=== PATIENT | female | born 1960 | race Caucasian/White ===

== ENCOUNTER 2016-10-11 03:25 | Emergency (ER) | payer OTHER ==
[~2016-10-11] VITALS: Ht 162.6 cm; Wt 80.0 kg
[~2016-10-11 03:25] MED LIST: NO KNOWN MEDICATIONS
--- OUTSIDE RECORDS SUMMARY | 2016-10-11 03:30 | XMS REPORT | Referral Summary ---
Author Author [facility] Organization [facility] Address Unknown Phone Unavailable Care Team Providers Care Wire Coiler Name Role Phone Chicho Lund Primary Care Physician [phone] Encounter VC Date(s): 05/16/16 - 05/16/16 [facility], Family [address] [place] [id number]- Discharge Diagnosis: Well woman exam (no gynecological exam) Discharge Disposition: 01-Home or Self Care Attending Physician: Chastity Lund DO Admitting Physician: Chastity Lund DO Vital Signs Most recent to 1 oldest [Reference Range]: Peripheral Pulse 71 bpm Rate [60-100 bpm] (05/16/16 8:34 AM) Blood Pressure 122/78 mmHg [90-140/60-90 mmHg] (05/16/16 8:34 AM) SpO2 98 % (05/16/16 8:34 AM) Problem List Condition Effective Dates Status Health Status Informant Arthritis(Confirmed) Active Hypertension(Confirm Active ed) L Knee Resolved arthritis(Confirmed) Overweight(Confirmed Active ) Tension Active headache(Confirmed) Allergies, Adverse Reactions, Alerts Substance Reaction Severity Status penicillin Active sulfanilamide topical Active tetracycline Active Medications No Known Medications Results No data available for this section Immunizations Vaccine Date Refusal Reason tetanus/diphtheria/pertussis, acel(Tdap) 07/02/10 Procedures Procedure Date Related Diagnosis Body Site Mammogram 04/21/16 Vaginal Pap smear 12/06/14 Cholecystectomy 04/2000 Breast reduction 02/1980 Knee Surgery 03/1978 Tonsillectomy 1971 Social History Social History Type Response Smoking Status Never smoker Assessment and Plan Extracted from: Title: WWE Author: Chastity Lund DO Date: 05/16/16 Assessment/Plan Well woman exam (no gynecological exam) Exam normal, colonoscopy paperwork provided and this was recommended today, we will keep an eye on her borderline high glucose through yearly work screenings, cholesterol was good, return to clinic in 1 year or sooner with problems. Ordered: Periodic Comp Preventive Med 40 to 64 years Est [id number]
--- OUTSIDE RECORDS SUMMARY | 2016-10-11 03:30 | XMS REPORT | Continuity of Care Document ---
Author Author [facility] Address Unknown Phone Unavailable Care Team Providers Care Cashier Supervisor Name Role Phone April Noriega TACHO Unavailable Payers Payer name Insurance type Covered libertarian ID Authorization(s) Unknown Problems Condition Effective Dates (start - stop) Clinical Status Sinusitis, Acute - *Acute Gynecological Examination - *Routine Hypertension, Unspecified - *Chronic Other and unspecified hyperlipidemia - *Chronic Shingles - *Acute OVERWEIGHT - TENSION HEADACHE - Hypertension, Benign - *Controlled Family History Family Member Diagnosis Age At Onset Status Unknown Social History Social History Element Description Quantity Unknown Allergies, Adverse Reactions, Alerts Substance Reaction Severity Status PENICILLINS Unknown TETRACYCLINE Unknown SULFANILAMIDE Unknown Medications Medication Instructions Dosage Effective Dates (start - stop) Status meloxicam 7.5 mg tablet take 2 tablet (15MG) by oral route every day as needed. - Active Cipro 500 mg tablet take 1 tablet (500MG) by oral route 2 times every day for 7 days 500 MG - No Longer Active Vitamin C 500 mg capsule,extended release take 1 Tablet by Oral route 2 times every day 0 - Active OMEGA-3 (unknown strength) take 1 Capsule by Oral route every day - Active VITAMIN D3 (unknown strength) - Active lisinopril 20 mg tablet Take 1 tablet by mouth every day. - Active Immunizations Vaccine Date Status Comments Tdap (Boostrix ) completed - Completed reason: source unspecified Results Test Name Date and Time Measure Units Reference Range Abnormal Flag Comments Unknown Vital Signs Date / Time: Height Weight Pulse Rate Blood Pressure Temperature /10:49:00 64.00 in 187.40 lbs 76 /min 116/84 mm[Hg] 98.4 F Procedures Procedure Date Unknown Encounters Encounter Location Date Patient Visit [facility] Patient Visit [facility] Patient Visit [facility] Patient Visit [facility] Patient Visit [facility] Patient Visit [facility] Patient Visit [facility] Advance Directives Directive Effective Date Unknown
--- OUTSIDE RECORDS SUMMARY | 2016-10-11 03:30 | XMS REPORT | Referral Summary ---
Author Author [facility] Organization [facility] Address Unknown Phone Unavailable Care Team Providers Care Seed Cleaning Manager Name Role Phone Kathia Noriega Primary Care Physician [phone] Encounter VC Date(s): 12/06/14 - 12/06/14 [facility] [address] [place] [address] Discharge Diagnosis: Well female exam with routine gynecological exam Discharge Diagnosis: HTN (hypertension) Discharge Diagnosis: Visit for screening mammogram Discharge Disposition: 01-Home or Self Care Attending Physician: Sowmya Young APRN Admitting Physician: Sowmya Young APRN Vital Signs Most recent to 1 oldest [Reference Range]: Peripheral Pulse 72 bpm Rate [60-100 bpm] (12/06/14 8:42 AM) Blood Pressure 118/84 mmHg [90-140/60-90 mmHg] (12/06/14 8:42 AM) SpO2 98 % (12/06/14 8:42 AM) Problem List Condition Effective Dates Status Health Status Informant Arthritis(Confirmed) Active Hypertension(Confirm Active ed) L Knee Resolved arthritis(Confirmed) Overweight(Confirmed Active ) Tension Active headache(Confirmed) Allergies, Adverse Reactions, Alerts Substance Reaction Severity Status penicillin Active sulfanilamide topical Active tetracycline Active Medications Fish Oil 1 caps, Oral, Daily, 0 Refill(s) Start Date: 04/10/14 Status: Ordered meloxicam 7.5 mg oral tablet 2 tabs, Oral, Daily, as needed, # 90, 0 Refill(s) Start Date: 04/10/14 Status: Ordered Vitamin C 500 mg oral tablet 1 tabs, Oral, BID, extended release, 0 Refill(s) Start Date: 04/10/14 Status: Ordered Vitamin D3 0 Refill(s) Start Date: 04/10/14 Status: Ordered Results No data available for this section Immunizations Vaccine Date Refusal Reason tetanus/diphtheria/pertussis, acel(Tdap) 07/02/10 Procedures Procedure Date Related Diagnosis Body Site Cholecystectomy 04/2000 Breast reduction 02/1980 Knee Surgery 03/1978 Tonsillectomy 1971 Social History Social History Type Response Smoking Status Never smoker Assessment and Plan Extracted from: Title: Ambulatory Patient Education Author: Sowmya Young [employer]OWER Date : 12/06/14 Family Medicine Hypertension Hypertension is another name for high blood pressure. High blood pressure may mean that your heart needs to work harder to pump blood. Blood pressure consists of two numbers, which includes a higher number over a lower number ( example: 110/72). HOME CARE Make lifestyle changes as told by your doctor. This may include weight loss and exercise. Take your blood pressure medicine every day. Limit how much salt you use. Stop smoking if you smoke. Do not use drugs. Talk to your doctor if you are using decongestants or control pills. These medicines might make blood pressure higher. Females should not drink more than 1 alcoholic drink per day. Males should not drink more than 2 alcoholic drinks per day. See your doctor as told. GET HELP RIGHT AWAY IF: You have a blood pressure reading with a top number of 180 or higher. You get a very bad headache. You get blurred or changing vision. You feel confused. You feel weak, numb, or faint. You get chest or belly (abdominal ) pain. You throw up (vomit ). You cannot breathe very well. MAKE SURE YOU: Understand these instructions. Will watch your condition. Will get help right away if you are not doing well or get worse. Document Released: 2008 Document Revised: 09/20/2012 Document Reviewed: Exit[employer] Patient Information 2014 [place]. No follow up information was provided. Extracted from: Title: Office Visit Note Author: Sowmya Young [employer] Date: 12/06/14 Assessment/Plan HTN (hypertension) cont with healthful diet choices and exercise. Ordered: CBC w/ Differential Comprehensive Metabolic Panel Visit for screening mammogram reviewed recent mammo-normal. Well female exam with routine gynecological exam pap today. Ordered: HPV High Risk, Thin Prep
--- OUTSIDE RECORDS SUMMARY | 2016-10-11 03:30 | XMS REPORT | Continuity of Care Document ---
Author Author [facility] Organization [facility] Address Unknown Phone Unavailable Allergies Medications Problems Procedures Results Encounters ACCT No. Visit Date/Time Discharge Status Pt. Type Provider Facility Loc./Unit Complaint [id number] 09/27/2013 10:41:00 09/27/2013 23 :59:59 C[facility] Outpatient
[2016-10-11 03:40] VITALS: Ht 162.6 cm; Wt 80.0 kg
--- OUTSIDE RECORDS SUMMARY | 2016-10-11 04:10 | XMS REPORT | Continuity of Care Document ---
Author Author [facility] Organization [facility] Address Unknown Phone Unavailable Allergies Medications Problems Procedures Results Encounters ACCT No. Visit Date/Time Discharge Status Pt. Type Provider Facility Loc./Unit Complaint [id number] 09/27/2013 10:41:00 09/27/2013 23 :59:59 CLS Outpatient
[2016-10-11] MEDS ORDERED: ASCO10007 PO (04:19)
[2016-10-11] MEDS ORDERED: VITA-357 PO (04:19)
[2016-10-11] MEDS ORDERED: CHOL200024 PO (04:19)
[2016-10-11] MEDS ORDERED: MAGN400C PO (04:19)
[2016-10-11] MEDS ORDERED: G.I. COCKTAIL 30ml PO ONE (04:30)
[2016-10-11] MEDS ORDERED: RANITIDINE 150 MG TABLET PO ONE (04:30)
--- NOTE | 2016-10-11 04:46 | NUR ---
PROVIDER DR HOLLIDAY IN ROOM.
--- NOTE | 2016-10-11 04:49 | ERPDOC ---
Departure Disposition Decision Date: Oct 11, 2016 Disposition Decision Time: 04:46 Disposition: 01 DISCHARGED HOME, SELF-CARE Impression Impression Impression: Primary Impression: Esophageal reflux Esophagitis presence: without esophagitis Qualified Codes: K21.9 - Gastro- esophageal reflux disease without esophagitis Severity: Moderate Condition: Improved Seen By: Physician only Referrals: SHEBA VIRAMONTES MD (Family) 1 Week Patient Instructions: Gastroesophageal Reflux Disease (ED) Problems/Meds/Labs Reviewed?: Yes Medications reviewed and manag: Yes Additional Instructions: You have had an episode of esophageal reflux. In the future, you may use Tums to directly neutralize the acid or zantac to prevent acid production. Unless your symptoms become severe or daily, avoid prilosec or nexium. Avoiding spicy or acidic foods, large meals, eating close to bedtime, alcohol, caffeine, and nicotine can all help with your symptoms. Follow up with your doctor next week. Follow up care ordered?: Yes Mental Status: Alert, Oriented HPI - General Medical General Chief Complaint: Throat Pain/Injury Stated Complaint: PROBLEMS SWALLOWING Time Seen by Provider: 04:03 Source: patient, family Exam Limitations: no limitations HPI - General Medical Initial Comments 55yo woman presents tonight with a sore throat. Pt woke up choking and gasping this AM. Subsequently, she felt that her throat was sore. Pt drank water, which helped, but her sx never went away completely. Pt took 50mg Benadryl without significant improvement in sx. Pt has a remote h/o ELIZABETH which resolved after she lost 45#. On further discussion pt and ate a larger than normal meal last night, much later than normal, and with much more starch than normal. Occurred At: home Onset: Rapid Duration: 1 hr Pain Scale: Now & Worst: 4/10 Severity: moderate Modifying Factors: IMPROVES WITH: medication Associated Symptoms: cough, shortness of breath Allergies: Coded Allergies: Penicillins (Verified Allergy, Severe, 10/11/16) Sulfa (Sulfonamide Antibiotics) (Verified Allergy, Severe, 10/11/16) tetracycline (Verified Allergy, Severe, 10/11/16) Past History Past Medical History Metabolic: other Review of Systems ENMT Mouth/Throat: sore throat Pulmonary Respiratory: cough, dyspnea All other Systems All Other Systems: Reviewed and Negative Physical Exam General General Nourishment: well nourished, well developed, appears stated age, no acute distress, adult, obese General Body Habitus: well groomed Vitals and Pain First Documented Vital Signs Date Time Temp Pulse Resp B/P Pulse Ox O2 Delivery O2 Flow Rate FiO2 10/11/16 03:40 98.3 79 16 166/81 98 Room Air Weight: Kilograms: 80.000 Height (feet): 5 Height (inches): 4.00 Triage Pain Scale: RN VS reviewed by Provider: Yes Eyes (brief) Eyes Brief: found: EOMI, PERRL, not found: scleral icterus ENMT (brief) ENMT Brief: FOUND: TM clear, TM good light reflex, ear canals clear, mucosa moist, normal tonsils, pharnyx erythema Neck (brief) Neck: FOUND: trachea midline, NOT FOUND: JVD, adenopathy, thyromegaly Respiratory (brief) Respiratory: FOUND: clear all curiel, equal bilaterally, symmetrical, NOT FOUND : rales, wheezes Cardiovascular (brief) Cardiac: FOUND: regular rate, regular rhythm, NOT FOUND: click, gallop, murmur , pedal edema, peripheral edema, rub Capillary Refill: <2 sec Pulses: all distal extremities, equal, strong Abdomen (brief) Abdominal Brief: FOUND: bowel normo active x4, soft, NOT FOUND: distended, hepatosplenomegaly, pulsatile mass, tender Lymphatic (brief) Lymphatic Brief: NOT FOUND: adenopathy, lymphedema Musculoskeletal (brief) Musculoskeletal Brief: NOT FOUND: deformity, loss of motion, spasm, tenderness Integumentary (brief) Integumentary Brief: FOUND: pink, warm Neurologic (brief) Neurological Brief: FOUND: CN w/o gross def to obs, motor-no gross deficits, sensory-no gross deficits Psychiatric (brief) Psychiatric Brief: FOUND: alert, normal affect, oriented Differential Diagnoses Considering: Medication Effect, Metabolic, Other (GERD, ELIZABETH) Progress Results/Orders Orders Procedure Category Date Status Time Ranitidine (Zantac) PHA 10/11/16 Complete 04:30 G.I. Cocktail PHA 10/11/16 Complete (/Maalox/Lidocaine 04:30 Medications Current ED Medications Ranitidine HCl (Zantac) 150 mg O ONCE PO Last administered on 10/11/16t 04:24; Start 10/11/16 at 04:30; Stop 10/11/16 at 04:31; Status DC Pharmacy Profile Note (/Maalox/ Lidocaine Soln) 30 ml O ONCE PO Last administered on 10/11/16t 04:24; Start 10/11/16 at 04:30; Stop 10/11/16 at 04:31; Status DC Progress Progress Pt with classic Hx and PE for esophageal reflux. Discussed role of her recent eating on reflux. Pt endorsed ELIZABETH sx prior to wt loss and the likely role of her meal last night on this AM's sx. Sx improved with medications given. Discussed dx, prognosis, and tx with pt and who both endorsed understanding. Recommend f/u with PCM. ANDREAS HOLLIDAY DO Oct 11, 2016 04:49
[2016-10-11 05:04] VITALS: BP 154/72; PULSE 66; RESP 16; TEMP 98.3; O2SAT 96
--- NOTE | 2016-10-11 05:04 | NUR ---
DEPART PT IS DISCHARGED AT THIS TIME, INSTRUCTIONS ARE REVIEWED AND UNDERSTANDING IS VOICED. PT LEAVES AMBULATORY WITH HER .
== END 2016-10-11 05:04 | disposition home or self-care (01) ==
LOC: ED 03:25
DX: K21.9 Gastro-esophageal reflux disease without esophagitis (principal)
CPT/HCPCS: 99283; J7999